=== PATIENT | female | born 1940 | race Caucasian/White ===

== ENCOUNTER 2023-01-11 19:40 | Observation (INO) | payer MEDICARE ==
[~2023-01-11] VITALS: Ht 162.6 cm; Wt 100.0 kg
[2023-01-11 19:57] LABS: BASOPHILS % (AUTO) 0.5 % (0-1); EOSINOPHILS # (AUTO) 0.1 X10'3 (0-0.9); EOSINOPHILS % (AUTO) 1.2 % (0-6); HEMATOCRIT 46.9 % (35.0-45.0); HEMOGLOBIN 15.9 g/dl (12.0-16.0); LYMPHOCYTES # (AUTO) 1.2 X10'3 (1.1-4.8); LYMPHOCYTES % (AUTO) 17.1 % (21-51); MEAN CORPUSCULAR HEMOGLOBIN 30.9 PG (27.0-31.0); MEAN CORPUSCULAR HGB CONC 33.8 g/dL (33.0-36.5); MEAN CORPUSCULAR VOLUME 91.4 FL (78-98); MEAN PLATELET VOLUME 9.1 FL (7.4-10.4); MONOCYTES # (AUTO) 0.4 X10'3 (0-0.9); MONOCYTES % (AUTO) 6.2 % (2-12); NEUTROPHILS # (AUTO) 5.4 X10'3 (1.8-7.7); PLATELET COUNT 190 X10'3 (140-440); RED BLOOD COUNT 5.14 X10'6 (4.20-5.60); WHITE BLOOD COUNT 7.2 X10'3 (4.5-11.0)
[2023-01-11 20:13] LABS: ALANINE AMINOTRANSFERASE 21 U/L (12-78); ALBUMIN 3.4 G/DL (3.4-5.0); ALBUMIN/GLOBULIN RATIO 0.9 (1.1-1.5); ALKALINE PHOSPHATASE 103 IU/L (46-116); ANION GAP 9 (8-16); ASPARTATE AMINO TRANSFERASE 23 U/L (10-37); BILIRUBIN,TOTAL 1.2 MG/DL (0.1-1.0); BLOOD UREA NITROGEN 17 MG/DL (7-18); BUN/CREATININE RATIO 16.7 (10.0-20.0); CALCIUM 9.5 MG/DL (8.5-10.1); CHLORIDE 103 MMOL/L (99-107); CREATININE 1.02 MG/DL (0.40-0.90); GLUCOSE 140 MG/DL (70-104); POTASSIUM 3.3 MMOL/L (3.5-5.1); SODIUM 142 MMOL/L (135-145); eCRCL 37 ML/MIN; eGFR 52 ML/MIN
[2023-01-11 20:19] LABS: PRO BRAIN NATRIURETIC PEPTIDE 1626 PG/ML (0-450)
[2023-01-11 22:53] LABS: INR 3.2 INR; PROTHROMBIN TIME 31.7 SECONDS (9.0-12.0)
[2023-01-11] MEDS ORDERED: PERFLUTREN PROTEIN-A MICROSPHR (Optison) 0.22 MG/ML 3ML VIAL IV PRN (23:05)
[2023-01-11] MEDS ORDERED: potassium Cl 20 mEq SR tablet PO PRN ×2 (23:05)
[2023-01-11] MEDS ORDERED: acetaminophen 325mg tablet PO PRN (23:05)
[2023-01-11] MEDS ORDERED: ondansetron/PF 4mg/2ml inj IV PRN (23:05)
[2023-01-11] MEDS ORDERED: mag hydrox/Alum hydrox/simeth 30ml oral suspension PO PRN (23:05)
[2023-01-11] MEDS ORDERED: magnesium 4gm in 100ml NS 100 ML IV PRN (23:05)
[2023-01-11] MEDS ORDERED: potassium Cl 40MEQ/1/2NS 520ml 520 ML IV PRN (23:05)
[2023-01-11] MEDS ORDERED: regadenoson 0.4mg/5ml syringe IV PRN (23:10)
[2023-01-11] MEDS ORDERED: aminophylline 250mg/10ml inj. IV PRN (23:10)
[2023-01-11] MEDS ORDERED: nitroGLYCERIN 0.4mg SUBLingual tab SL PRN (23:10)
[2023-01-11] MEDS ORDERED: metoprolol tartrate 1mg/ml inj IV PRN (23:10)
[2023-01-11] MEDS: normal saline 1000ml 1,000 ML IV SCH (23:37)
[2023-01-11] MEDS: nitroGLYCERIN 0.4mg/hour patch TD SCH (23:37)
[2023-01-12] VITALS (13 sets, daily range): BP systolic 110–205; BP diastolic 54–112; PULSE 67–85; RESP 12–20; TEMP 97.6–98.2; O2SAT 95–99
[2023-01-12] MEDS ORDERED: hydrALAZINE 20mg/ml inj. IV PRN (01:05)
[2023-01-12] MEDS: normal saline 1000ml 1,000 ML IV SCH (01:30)
[2023-01-12] MEDS ORDERED: LOSA100T58 PO (04:13)
[2023-01-12] MEDS ORDERED: HYDR12.55 PO (04:13)
[2023-01-12] MEDS ORDERED: LEVO75TA7 PO (04:13)
[2023-01-12] MEDS ORDERED: PRAV80TA3 PO (04:13)
[2023-01-12] MEDS ORDERED: METO50TA16 PO (04:13)
--- NOTE | 2023-01-12 06:30 | NUR ---
Patient in room PCU 3026. I have received report from Mateo CHAVIRA and had the opportunity to ask questions and assume patient care.
[2023-01-12 06:51] LABS: BASOPHILS % (AUTO) 0.4 % (0-1); EOSINOPHILS # (AUTO) 0.1 X10'3 (0-0.9); EOSINOPHILS % (AUTO) 0.7 % (0-6); HEMATOCRIT 45.3 % (35.0-45.0); HEMOGLOBIN 15.3 g/dl (12.0-16.0); LYMPHOCYTES # (AUTO) 1.6 X10'3 (1.1-4.8); LYMPHOCYTES % (AUTO) 19.1 % (21-51); MEAN CORPUSCULAR HEMOGLOBIN 30.9 PG (27.0-31.0); MEAN CORPUSCULAR HGB CONC 33.7 g/dL (33.0-36.5); MEAN CORPUSCULAR VOLUME 91.8 FL (78-98); MEAN PLATELET VOLUME 9.2 FL (7.4-10.4); MONOCYTES # (AUTO) 0.6 X10'3 (0-0.9); MONOCYTES % (AUTO) 7.5 % (2-12); NEUTROPHILS # (AUTO) 6.1 X10'3 (1.8-7.7); NEUTROPHILS % (AUTO) 72.3 % (42-75); PLATELET COUNT 190 X10'3 (140-440); RED BLOOD COUNT 4.94 X10'6 (4.20-5.60); RED CELL DISTRIBUTION WIDTH 15.4 % (11.5-14.5); WHITE BLOOD COUNT 8.4 X10'3 (4.5-11.0)
[2023-01-12 07:16] LABS: ALANINE AMINOTRANSFERASE 19 U/L (12-78); ALBUMIN 3.2 G/DL (3.4-5.0); ALBUMIN/GLOBULIN RATIO 0.9 (1.1-1.5); ALKALINE PHOSPHATASE 99 IU/L (46-116); ANION GAP 8 (8-16); ASPARTATE AMINO TRANSFERASE 24 U/L (10-37); BILIRUBIN,TOTAL 1.3 MG/DL (0.1-1.0); BLOOD UREA NITROGEN 15 MG/DL (7-18); BUN/CREATININE RATIO 16.7 (10.0-20.0); CALCIUM 9.1 MG/DL (8.5-10.1); CHLORIDE 104 MMOL/L (99-107); GLUCOSE 101 MG/DL (70-104); MAGNESIUM 1.5 MG/DL (1.5-2.4); POTASSIUM 3.5 MMOL/L (3.5-5.1); SODIUM 142 MMOL/L (135-145); TOTAL CARBON DIOXIDE 30.2 MMOL/L (24-32); TOTAL PROTEIN 6.7 G/DL (6.4-8.2); eCRCL 42 ML/MIN; eGFR 60 ML/MIN
[2023-01-12 07:30] LABS: INR 3.2 INR
[2023-01-12] MEDS ORDERED: metoprolol tartrate 50mg tablet PO SCH (08:00)
[2023-01-12] MEDS ORDERED: losartan 50mg tablet PO SCH (08:00)
[2023-01-12] MEDS ORDERED: levoTHYROXINE 75mcg tablet PO SCH (08:00)
[2023-01-12] MEDS: nitroGLYCERIN 0.4mg/hour patch TD SCH (08:00)
[2023-01-12] MEDS ORDERED: HYDROchlorothiazide 12.5mg capsule PO SCH (08:00)
[2023-01-12] MEDS ORDERED: K and/or MAG REPLACEMENT MC SCH (08:00)
[2023-01-12] MEDS ORDERED: docusate sod 100mg capsule PO SCH (08:00)
[2023-01-12] MEDS ORDERED: WARF-65 PO (10:51)
--- NOTE | 2023-01-12 11:39 | NUR ---
PAGER ID: [phone] MESSAGE: [phone] Garrett Barb results are back. Patient is requesting water and food. Thank you Edda CHAVIRA [phone]
[2023-01-12] MEDS ORDERED: FURO-150 PO (13:36)
[2023-01-12] MEDS ORDERED: METO75TA PO (15:00)
[2023-01-12] MEDS ORDERED: metoprolol tartrate 25mg tablet PO ONE (15:05)
--- NOTE | 2023-01-12 15:30 | NUR ---
Patient discharged home with all belongings and discharge instructions. IV removed and tele monitor removed and returned to [facility].
[2023-01-12] MEDS ORDERED: pravastatin 40mg tablet PO SCH (21:00)
== END 2023-01-12 15:30 | disposition home or self-care (01) ==
LOC: ER 19:41 → ED HOLD 23:09 → EDBEDREQ 23:57 → PCU 3S 01-12 00:46
PROVIDERS: ADMIT Family Medicine; ATTEND Internal Medicine
DX: R07.89 Other chest pain (principal); I48.91 Unspecified atrial fibrillation; I25.10 Atherosclerotic heart disease of native coronary artery without angina pectoris; E87.6 Hypokalemia; I10 Essential (primary) hypertension; E78.00 Pure hypercholesterolemia, unspecified; E03.9 Hypothyroidism, unspecified; G47.33 Obstructive sleep apnea (adult) (pediatric); J44.9 Chronic obstructive pulmonary disease, unspecified; E78.5 Hyperlipidemia, unspecified; I34.81 Nonrheumatic mitral (valve) annulus calcification; F12.90 Cannabis use, unspecified, uncomplicated; I25.2 Old myocardial infarction; Z66 Do not resuscitate; Z79.01 Long term (current) use of anticoagulants; Z87.891 Personal history of nicotine dependence; Z95.1 Presence of aortocoronary bypass graft; Z79.899 Other long term (current) drug therapy
CPT/HCPCS: 36415; 71045; 78452; 80053; 83735; 83880; 84484; 85025; 85610; 87081; 93005; 93017; 93306; 96361; 96374; 96375; 99285; A9500; G0378; J0360; J2405; J2785; J7030